=== PATIENT | male | born 2000 | race Two or more races ===

== ENCOUNTER 2024-01-10 23:06 | Emergency (ER) | payer MEDICAID ==
[~2024-01-10] VITALS: Ht 160 cm; Wt 104.5 kg
[2024-01-10 23:08] VITALS: BP 137/70; RESP 16
== END 2024-01-11 00:03 | disposition home or self-care (01) ==
LOC: EMS 23:09
DX: K12.0 Recurrent oral aphthae (principal)
CPT/HCPCS: 87430; 99283

== ENCOUNTER 2024-06-11 17:49 | Emergency (ER) | payer MEDICAID ==
[~2024-06-11] VITALS: Ht 160 cm; Wt 95.5 kg
[2024-06-11 17:52] VITALS: BP 145/69; PULSE 97; RESP 18; TEMP 98.5; O2SAT 97
== END 2024-06-11 20:54 | disposition left against medical advice (07) ==
LOC: EMS 17:49
DX: R10.9 Unspecified abdominal pain (principal); Z53.21 Procedure and treatment not carried out due to patient leaving prior to being seen by health care provider

== ENCOUNTER 2024-07-22 05:49 | Emergency (ER) | payer MEDICAID ==
[~2024-07-22] VITALS: Ht 160 cm; Wt 106.0 kg
[2024-07-22 05:55] VITALS: TEMP 98.4
[2024-07-22] MEDS: PERTUSS(ACELL),DIPH,TET/PF 0.5 ML SYRINGE [ADULT] IM. ONE (06:29)
[2024-07-22] MEDS: LIDOCAINE 1% 10 ML VIAL SQ ONE (06:30)
[2024-07-22 06:49] VITALS: BP 141/90; PULSE 101; RESP 16; O2SAT 97
== END 2024-07-22 07:36 | disposition home or self-care (01) ==
LOC: EMS 05:51
DX: S91.311A Laceration without foreign body, right foot, initial encounter (principal); F17.210 Nicotine dependence, cigarettes, uncomplicated; F12.90 Cannabis use, unspecified, uncomplicated; K76.0 Fatty (change of) liver, not elsewhere classified; W26.8XXA Contact with other sharp object(s), not elsewhere classified, initial encounter; Y93.89 Activity, other specified; Y92.89 Other specified places as the place of occurrence of the external cause; Y99.8 Other external cause status
CPT/HCPCS: 99283; 73630; 90715; 90471; 12001; J3490

== ENCOUNTER 2024-07-29 07:58 | Emergency (ER) | payer MEDICAID ==
[~2024-07-29] VITALS: Ht 165.1 cm; Wt 104.5 kg
[2024-07-29 08:00] VITALS: BP 136/77; PULSE 94; RESP 16; TEMP 98; O2SAT 100
== END 2024-07-29 08:40 | disposition home or self-care (01) ==
LOC: EMS 07:58
DX: S91.115D Laceration without foreign body of left lesser toe(s) without damage to nail, subsequent encounter (principal); F12.90 Cannabis use, unspecified, uncomplicated; F17.210 Nicotine dependence, cigarettes, uncomplicated; K76.0 Fatty (change of) liver, not elsewhere classified; Z48.02 Encounter for removal of sutures; X58.XXXA Exposure to other specified factors, initial encounter; Y93.89 Activity, other specified; Y92.89 Other specified places as the place of occurrence of the external cause; Y99.8 Other external cause status
CPT/HCPCS: 99281; Z7502